=== PATIENT | female | born 1975 | race Caucasian/White ===

== ENCOUNTER 2016-11-24 01:31 | Emergency (ER) | payer OTHER ==
[2016-11-24 01:42] VITALS: TEMP 97.9; BMI 43.4
--- NOTE | 2016-11-24 02:00 | ED PDOC ---
Arrival/HPI - General Chief Complaint: Chest Pain Time Seen by Provider: 11/24/16 01:44 Historian: Patient - History of Present Illness Narrative History of Present Illness (Text): 11/24/16 02:01 A 41 year old female, whose past medical history includes hypertension, presents to the emergency department complaining of left sided chest pain and arm pain for the past 2 days. Patient notes pain is worse with deep breaths. Denies any abdominal pain or any other complaints at this time. Denies smoking. Symptom Onset: Sudden Symptom Course: Unchanged Activities at Onset: Rest Context: Home Past Medical History - Provider Review Nursing Documentation Reviewed: Yes - Infectious Disease Hx of Infectious Diseases: None - Tetanus Immunization Tetanus Immunization: Unknown - Cardiac Hx Cardiac Disorders: Yes Hx Hypertension: Yes - Pulmonary Hx Respiratory Disorders: No - Neurological Hx Neurological Disorder: No - HEENT Hx HEENT Disorder: No - Renal Hx Renal Disorder: No - Endocrine/Metabolic Hx Endocrine Disorders: No - Hematological/Oncological Hx Blood Disorders: No - Integumentary Hx Dermatological Disorder: No - Musculoskeletal/Rheumatological Hx Musculoskeletal Disorders: Yes Hx Back Pain: Yes - Gastrointestinal Hx Gastrointestinal Disorders: No - Genitourinary/Gynecological Hx Genitourinary Disorders: No - Psychiatric Hx Psychophysiologic Disorder: No Hx Substance Use: No - Surgical History Hx Section: Yes (X2) Other/Comment: MARILIN LOVE, - Anesthesia Hx Anesthesia: Yes Hx Anesthesia Reactions: No Hx Malignant Hyperthermia: No - Suicidal Assessment Feels Threatened In Home Enviroment: No Family/Social History - Physician Review Nursing Documentation Reviewed: Yes Family/Social History: No Known Family HX Smoking Status: Never Smoked Hx Alcohol Use: No Hx Substance Use: No Hx Substance Use Treatment: No Allergies/Home Meds Allergies/Adverse Reactions: Allergies seafood Adverse Reaction (Uncoded 11/24/16 01:42) SHORTNESS OF BREATH Home Medications: Home Meds Medication Instructions Recorded Confirmed Metoprolol Succinate [Toprol XL] 50 mg PO DAILY 10/28/15 11/24/16 Review of Systems - Physician Review All systems were reviewed & negative as marked: Yes - Review of Systems Cardiovascular: Chest Pain Gastrointestinal: absent: Abdominal Pain Musculoskeletal: Other (arm pain) Physical Exam Vital Signs Reviewed: Yes Vital Signs Temp Pulse Resp BP Pulse Ox 11/24/16 04:18 62 18 142/86 99 11/24/16 01:41 97.9 F 59 L 19 132/80 100 Temperature: Afebrile Blood Pressure: Normal Pulse: Bradycardic Respiratory Rate: Normal Appearance: Positive for: Well-Appearing, Non-Toxic, Comfortable Pain Distress: None Mental Status: Positive for: Alert and Oriented X 3 - Systems Exam Head: Present: Atraumatic, Normocephalic Pupils: Present: PERRL Extroacular Muscles: Present: EOMI Conjunctiva: Present: Normal Mouth: Present: Moist Mucous Membranes Neck: Present: Normal Range of Motion Respiratory/Chest: Present: Clear to Auscultation, Good Air Exchange, Tender to Palpation (L chest wall). No: Respiratory Distress, Accessory Muscle Use Cardiovascular: Present: Bradycardic. No: Murmurs Abdomen: Present: Normal Bowel Sounds. No: Tenderness, Distention, Peritoneal Signs Back: Present: Normal Inspection Upper Extremity: Present: Normal Inspection. No: Cyanosis, Edema Lower Extremity: Present: Normal Inspection. No: Edema Neurological: Present: GCS=15, CN II-XII Intact, Speech Normal Skin: Present: Warm, Dry, Normal Color. No: Rashes Psychiatric: Present: Alert, Oriented x 3, Normal Insight, Normal Concentration Medical Decision Making ED Course and Treatment: 11/24/16 01:57 Impression: A 41 year old female with left sided chest pain and arm pain. Differential Diagnosis included but are not limited to: costochondritis vs. musculoskeletal chest pain Plan: -- EKG -- labs -- Urinalysis -- Toradol -- Reassess and disposition Prior Visits: Notes and results from previous visits were reviewed. Patient last reported to the emergency department on 04/04/16 for evaluation of left shoulder pain. Progress Notes: 11/24/16 02:30 EKG: Ordered, reviewed, and independently interpreted the EKG. Rate : 53 BPM Rhythm : sinus bradycardia Interpretation : Nonspecific ST segment changes pt feels better after toadol will dc , no cardiac risk factore 11/28/16 20:14 Re-evaluation Time: 04:20 Reassessment Condition: Re-examined, Improved - Lab Interpretations Lab Results: 11/24/16 02:22 11/24/16 02:22 Lab Results 11/24/16 02:22: Sodium 139, Potassium 4.2, Chloride 103, Carbon Dioxide 26, Anion Gap 14, BUN 16, Creatinine 0.6, Est GFR ( Amer) > 60, Est GFR (Non- Af Amer) > 60, Random Glucose 100, Calcium 9.4, Magnesium 1.9, Total Bilirubin 0.4, AST 24, ALT 38, Alkaline Phosphatase 72, Lactate Dehydrogenase 404, Total Creatine Kinase 87, Troponin I < 0.01, Total Protein 7.9, Albumin 4.1, Globulin 3.7, Albumin/Globulin Ratio 1.1 11/24/16 02:22: WBC 6.5, RBC 4.28, Hgb 13.0, Hct 38.4, MCV 89.7, MCH 30.4, MCHC 33.9, RDW 14.1, Plt Count 253, MPV 9.7, Gran % 38.1 L, Lymph % (Auto) 50.4 H, [place] % (Auto) 10.1 H, Eos % (Auto) 1.2 L, Baso % (Auto) 0.2, Gran # 2.46, Lymph # 3.3, [place] # 0.7 H, Eos # 0.1, Baso # 0.01 I have reviewed the lab results: Yes - EKG Interpretation Interpreted by ED Physician: Yes Type: 12 lead EKG - Medication Orders Current Medication Orders: Discontinued Medications Ketorolac Tromethamine (Toradol) 30 mg IVP ONCE ONE Stop: 11/24/16 01:56 DEBRA Risk Score for UA/NSTEMI - DEBRA Risk Score Age > 64: NO 3 or more CAD Risk Factors: NO Known CAD (Stenosis greater than 50%): NO Severe Angina: NO EKG ST changes greater than 0.5mm: NO Positive Cardiac Marker: NO DEBRA Score: 0 % risk at 14 days of: all cause mortality, new or recurrent ND, or severe recurrent ischemia requiring urgen revascularization: 5% - Scribe Statement The provider has reviewed the documentation as recorded by the Emili Leonardo Provider Scribe Attestation: All medical record entries made by the Emili were at my direction and personally dictated by me. I have reviewed the chart and agree that the record accurately reflects my personal performance of the history, physical exam, medical decision making, and the department course for this patient. I have also personally directed, reviewed, and agree with the discharge instructions and disposition. Disposition/Present on Arrival - Present on Arrival Any Indicators Present on Arrival: No History of DVT/PE: No History of Uncontrolled Diabetes: No Urinary Catheter: No History of Decub. Ulcer: No History Surgical Site Infection Following: None - Disposition Have Diagnosis and Disposition been Completed?: Yes Diagnosis: Musculoskeletal chest pain Disposition: HOME/ ROUTINE Disposition Time: 04:20 Condition: GOOD Discharge Instructions (ExitCare): Chest Pain (ED) Print Language: [place] ISLAND[place]
[2016-11-24 02:33] LABS: BASO # 0.01 K/mm3 (0.0-2.0); BASO % 0.2 % (0.0-3.0); EOS # 0.1 (0.0-0.7); EOS % 1.2 % (1.5-5.0); GRAN # 2.46 (1.4-6.5); GRAN % 38.1 % (50.0-68.0); LYMPH # 3.3 (1.2-3.4); LYMPH % 50.4 % (22.0-35.0); MEAN CELL VOLUME 89.7 fL (80.0-105.0); MEAN CORPUSCULAR HEMOGLOBIN 30.4 pg (25.0-35.0); MEAN CORPUSCULAR HGB CONC 33.9 g/dl (31.0-37.0); MEAN PLATELET VOLUME 9.7 fl (7.0-11.0); MONO # 0.7 (0.1-0.6); MONO % 10.1 % (1.0-6.0); PLATELET COUNT 253 10^3/uL (120.0-450.0); RBC 4.28 10^6/uL (3.5-6.1); RED CELL DISTRIBUTION WIDTH 14.1 % (11.5-14.5); WHITE BLOOD COUNT 6.5 10^3/ul (4.5-11.0)
[2016-11-24 02:54] LABS: ALB/GLOB RATIO 1.1 (1.1-1.8); ALBUMIN 4.1 g/dL (3.0-4.8); ALT/SGPT 38 U/L (7-56); AST/SGOT 24 U/L (15-39); BLOOD UREA NITROGEN 16 mg/dL (7-21); CALCIUM 9.4 mg/dL (8.4-10.5); GFR AFRICAN-AMERICAN > 60; GFR NON-AFRICAN AMERICAN > 60; MAGNESIUM 1.9 mg/dL (1.7-2.2)
[2016-11-24 03:06] LABS: TROPONIN I < 0.01 ng/mL
[2016-11-24 04:19] VITALS: BP 142/86; PULSE 62; RESP 18; O2SAT 99
--- NOTE | 2016-11-24 20:15 | CARD ---
APPROVED REPORT EKG Measurement Heart [id number] <Conclusion> Sinus bradycardia Minimal voltage criteria for LVH, may be normal variant Borderline ECG
== END 2016-11-24 04:43 | disposition home or self-care (01) ==
LOC: ED 01:31
DX: R07.89 Other chest pain (principal); I10 Essential (primary) hypertension

== ENCOUNTER 2017-11-13 15:24 | Emergency (ER) | payer OTHER ==
[2017-11-13 15:24] VITALS: BMI 42.0
[2017-11-13 16:34] VITALS: O2SAT 98
[2017-11-13] MEDS ORDERED: Sodium Chloride 0.9% 1,000 ML IV STA (17:41)
--- NOTE | 2017-11-13 17:42 | ED PDOC ---
Arrival/HPI - General Chief Complaint: Back Pain Time Seen by Provider: 11/13/17 16:39 Historian: Patient - History of Present Illness Narrative History of Present Illness (Text): 11/13/17 17:20 Patient was recently placed on ED room. This 42 yo female came c/o RUQ abdominal pain radiating to her right shoulder x 7 days. Patient has worsen last 3 days. Patient denies sob, cp, arredondo, wheezing, palpitation, vomiting, rectal bleeding, recent trauma, dizziness, or abnormal gait. Time/Duration: Other (see hpi) Context: Home Past Medical History - Provider Review Nursing Documentation Reviewed: Yes - Infectious Disease Hx of Infectious Diseases: None - Tetanus Immunization Tetanus Immunization: Unknown - Cardiac Hx Hypertension: Yes - Pulmonary Hx Respiratory Disorders: No - Neurological Hx Neurological Disorder: No - HEENT Hx HEENT Disorder: No - Renal Hx Renal Disorder: No - Endocrine/Metabolic Hx Endocrine Disorders: No - Hematological/Oncological Hx Blood Disorders: No - Integumentary Hx Dermatological Disorder: No - Musculoskeletal/Rheumatological Hx Musculoskeletal Disorders: Yes Hx Back Pain: Yes - Gastrointestinal Hx Gastrointestinal Disorders: No - Genitourinary/Gynecological Hx Genitourinary Disorders: No - Psychiatric Hx Psychophysiologic Disorder: No Hx Substance Use: No - Surgical History Hx Section: Yes (X2) Other/Comment: MARILIN LOVE, - Anesthesia Hx Anesthesia: Yes Hx Anesthesia Reactions: No Hx Malignant Hyperthermia: No - Suicidal Assessment Feels Threatened In Home Enviroment: No Family/Social History - Physician Review Nursing Documentation Reviewed: Yes Family/Social History: Other (noncontributory) Smoking Status: Never Smoked Hx Alcohol Use: No Hx Substance Use: No Hx Substance Use Treatment: No Allergies/Home Meds Allergies/Adverse Reactions: Allergies shellfish derived Allergy (Verified 11/13/17 16:26) ANAPHYLAXIS Home Medications: Home Meds Medication Instructions Recorded Confirmed Metoprolol Succinate XL [Toprol XL] 50 mg PO DAILY 10/28/15 11/13/17 Omeprazole [Omeprazole] 40 mg PO DAILY 06/11/17 11/13/17 traMADol [Ultram] 50 mg PO Q6H PRN 06/11/17 11/13/17 Vit D3-Vit K/Berberine/Hops 1 each PO QWK 11/13/17 11/13/17 [Ostera Tablet] Review of Systems - Review of Systems Constitutional: Normal. absent: Fatigue, Weight Change Eyes: Normal ENT: Normal Respiratory: Normal. absent: SOB, Cough, Sputum, Wheezing Cardiovascular: Normal. absent: Chest Pain, Palpitations Gastrointestinal: Abdominal Pain (Radiates to the back and shoulder), Nausea. absent: Constipation, Vomiting Genitourinary Female: Normal Musculoskeletal: Normal Skin: Normal Neurological: Normal Endocrine: Normal Hemo/Lymphatic: Normal Psychiatric: Normal Physical Exam Vital Signs Temp Pulse Resp BP Pulse Ox 11/13/17 21:42 98.2 F 68 17 148/72 98 11/13/17 16:29 98.5 F 61 18 104/67 98 Temperature: Afebrile Blood Pressure: Normal Pulse: Regular Respiratory Rate: Normal Appearance: Positive for: Well-Appearing, Non-Toxic, Comfortable Pain Distress: None Mental Status: Positive for: Alert and Oriented X 3 - Systems Exam Head: Present: Atraumatic, Normocephalic Pupils: Present: PERRL Extroacular Muscles: Present: EOMI Conjunctiva: Present: Normal Mouth: Present: Moist Mucous Membranes Neck: Present: Normal Range of Motion Respiratory/Chest: Present: Clear to Auscultation, Good Air Exchange. No: Respiratory Distress, Accessory Muscle Use Cardiovascular: Present: Regular Rate and Rhythm, Normal S1, S2. No: Murmurs Abdomen: Present: Normal Bowel Sounds. No: Tenderness, Distention, Peritoneal Signs, Rebound, Guarding, McBurney's Point Tender, Rovsing's Sign Present Back: Present: Normal Inspection Upper Extremity: Present: Normal Inspection, Normal ROM. No: Cyanosis, Edema Lower Extremity: Present: Normal Inspection, NORMAL PULSES, Normal ROM. No: Edema Neurological: Present: GCS=15, CN II-XII Intact, Speech Normal Skin: Present: Warm, Dry, Normal Color. No: Rashes Psychiatric: Present: Alert, Oriented x 3, Normal Insight, Normal Concentration Medical Decision Making ED Course and Treatment: 11/15/17 19:28 Re-evaluation. Patient feels better. Discussed results and plan with patient who expresses understanding. All questions answered and there is agreement with the plan to discharge home with instructions. Patient stable for discharge. Return if symptoms persist or worsen. Patient was recommended to f/u PMD and surgeon for revaluation. To return to emergency if symptoms worsen. Re-evaluation Time: 20:40 Reassessment Condition: Re-examined, Improved - Lab Interpretations Microbiology Results: Microbiology Results 11/13/17 18:28 Urine Urine Culture - Final No Growth (<1,000 CFU/ML) Lab Results: 11/13/17 18:28 11/13/17 18:28 Lab Results 11/13/17 18:28: Urine Color Yellow, Urine Appearance Clear, Urine pH 7.5, Ur Specific [place] 1.015, Urine Protein Negative, Urine Glucose (UA) Negative, Urine Ketones Trace H, Urine Blood Negative, Urine Nitrate Negative, Urine Bilirubin Negative, Urine Urobilinogen 0.2, Ur Leukocyte Esterase Negative, Urine HCG, Qual Negative 11/13/17 18:28: Sodium 143, Potassium 4.5, Chloride 104, Carbon Dioxide 27, Anion Gap 16, BUN 15, Creatinine 0.8, Est GFR ( Amer) > 60, Est GFR (Non- Af Amer) > 60, Random Glucose 89, Calcium 9.2, Magnesium 2.0, Total Bilirubin 0.2, AST 28, ALT 39, Alkaline Phosphatase 68, Total Protein 7.9, Albumin 4.2, Globulin 3.7, Albumin/Globulin Ratio 1.1, Lipase 139 11/13/17 18:28: WBC 7.6, RBC 4.25, Hgb 12.8, Hct 38.3, MCV 90.1, MCH 30.1, MCHC 33.4, RDW 14.5, Plt Count 265, MPV 9.6, Gran % 43.9 L, Lymph % (Auto) 42.1 H, [place] % (Auto) 12.3 H, Eos % (Auto) 1.6, Baso % (Auto) 0.1, Gran # 3.32, Lymph # (Auto) 3.2, [place] # (Auto) 0.9 H, Eos # (Auto) 0.1, Baso # (Auto) 0.01 I have reviewed the lab results: Yes Interpretation: No clinic. lab abnormalty - RAD Interpretation Narrative RAD Interpretations (Text): 11/13/17 20:39 FINDINGS: Lung bases: Unremarkable. No mass. No consolidation. ABDOMEN: Liver: Unremarkable. Gallbladder and bile ducts: Unremarkable. No calcified stones. No ductal dilation. Pancreas: Unremarkable. No ductal dilation. Spleen: Unremarkable. No splenomegaly. Adrenals: Unremarkable. No mass. Kidneys and ureters: Unremarkable. No obstructing stones. No hydronephrosis. Stomach and bowel: Stool is present throughout the colon and rectum, correlate with history of constipation. . No dilated bowel loops. PELVIS: Appendix: No findings to suggest acute appendicitis. Bladder: Partially contracted. Reproductive: Unremarkable as visualized. ABDOMEN and PELVIS: Intraperitoneal space: Unremarkable. No free air. No drainable fluid collection. Bones/joints: No acute fracture. No dislocation. Soft tissues: Small fat-containing subumbilical hernia. Vasculature: Lack of intravenous contrast limits evaluation for pathology. No abdominal aortic aneurysm. Lymph nodes: Unremarkable. No enlarged lymph nodes. IMPRESSION: Lack of intravenous contrast limits evaluation for pathology. No evidence of bilateral nephrolithiasis or hydronephrosis. No imaging features to suggest acute appendicitis at this time. 11/13/17 20:41 FINDINGS: Liver: Hepatic steatosis. No intrahepatic bile duct dilation. Gallbladder: The gallbladder is contracted. Evaluation for cholelithiasis is limited due to contracted status of the gallbladder. Correlate clinically. Common bile duct: Common bile duct measures up to 4.2 mm. No stones. No dilation. Pancreas: Unremarkable as visualized. Right kidney: No hydronephrosis. IMPRESSION: 1. Hepatic steatosis. 2. The gallbladder is contracted. Evaluation for cholelithiasis is limited due to contracted status of the gallbladder. Correlate clinically Radiology Orders: 11/13/17 ABD & PELVIS W/O PO OR IV CONT [CT] Stat 11/13/17 17:38 GALLBLADDER & COMMON DUCT [US] Stat - Medication Orders Current Medication Orders: Discontinued Medications Famotidine (Pepcid) 20 mg IVP STAT STA Stop: 11/13/17 17:40 Last Admin: 11/13/17 18:15 Dose: 20 mg IVP Administration Document 11/13/17 18:15 MS (Rec: 11/13/17 18:15 [place] [facility] [id number] Charges for Administration # of IVP Administrations 1 Sodium Chloride (Sodium Chloride 0.9%) 1,000 mls @ 999 mls/hr IV .Q1H1M STA Stop: 11/13/17 18:41 Last Admin: 11/13/17 18:15 Dose: 999 mls/hr eMAR Start Stop Document 11/13/17 18:15 MS (Rec: 11/13/17 18:15 MS [facility] [id number] Intravenous Solution Start Date 11/13/17 Start Time 18:15 End Date 11/13/17 End time 19:15 Total Infusion Time 60 Ketorolac Tromethamine (Toradol) 30 mg IVP STAT STA Stop: 11/13/17 20:41 Last Admin: 11/13/17 21:10 Dose: 30 mg MAR Pain Assessment Document 11/13/17 21:10 IT (Rec: 11/13/17 21:10 IT [id number]) Pain Reassessment Is this a pain reassessment? No Presence of Pain Presence of Pain Yes IVP Administration Document 11/13/17 21:10 IT (Rec: 11/13/17 21:10 IT [id number]) Charges for Administration # of IVP Administrations 1 Disposition/Present on Arrival - Present on Arrival Any Indicators Present on Arrival: No History of DVT/PE: No History of Uncontrolled Diabetes: No Urinary Catheter: No History of Decub. Ulcer: No History Surgical Site Infection Following: None - Disposition Have Diagnosis and Disposition been Completed?: Yes Diagnosis: Biliary colic symptom Disposition: HOME/ ROUTINE Disposition Time: 20:42 Patient Plan: Discharge Condition: IMPROVED Discharge Instructions (ExitCare): Gallstones (DC) Additional Instructions: Call private doctor and general surgeon for follow up visit and revaluation in 1 -2 days. take medication for pain as needed. return to emergency if pain worsen Prescriptions: Famotidine [Pepcid] 40 mg PO DAILY #10 tablet Ibuprofen [Motrin] 600 mg PO Q8 PRN #20 tab PRN Reason: Pain, Severe (8-10) Referrals: Yan Dewitt MD [Primary Care Provider] - Follow up with primary Millie Gann MD [Staff Provider] - Follow up with primary Forms: [employer] (Macedonian), WORK NOTE
[2017-11-13 18:33] LABS: BASO # 0.01 K/mm3 (0.0-2.0); BASO % 0.1 % (0.0-3.0); EOS # 0.1 (0.0-0.7); EOS % 1.6 % (1.5-5.0); GRAN # 3.32 (1.4-6.5); GRAN % 43.9 % (50.0-68.0); HEMOGLOBIN 12.8 g/dL (12.0-16.0); LYMPH # 3.2 (1.2-3.4); LYMPH % 42.1 % (22.0-35.0); MEAN CELL VOLUME 90.1 fl (80.0-105.0); MEAN CORPUSCULAR HEMOGLOBIN 30.1 pg (25.0-35.0); MEAN CORPUSCULAR HGB CONC 33.4 g/dl (31.0-37.0); MEAN PLATELET VOLUME 9.6 fl (7.0-11.0); MONO # 0.9 (0.1-0.6); MONO % 12.3 % (1.0-6.0); PH,URINE 7.5 (4.7-8.0); RBC 4.25 10^6/uL (3.5-6.1); RED CELL DISTRIBUTION WIDTH 14.5 % (11.5-14.5); URINE BILIRUBIN NEGATIVE (NEGATIVE); URINE BLOOD NEGATIVE (NEGATIVE); URINE GLUCOSE (UA) NEGATIVE (NEGATIVE); URINE LEUKOCYTE ESTERASE NEGATIVE Leu/uL (NEGATIVE); URINE PROTEIN NEGATIVE mg/dL (<30 mg/dL); URINE UROBILINOGEN 0.2 E.U./dL (<1 E.U./dL); WHITE BLOOD COUNT 7.6 10^3/ul (4.5-11.0)
[2017-11-13 18:36] LABS: URINE APPEARANCE CLEAR (CLEAR); URINE COLOR YELLOW (YELLOW)
[2017-11-13 18:38] LABS: HCG,QUALITATIVE URINE NEGATIVE (NEGATIVE)
[2017-11-13 18:48] LABS: ALB/GLOB RATIO 1.1 (1.1-1.8); ALBUMIN 4.2 g/dL (3.0-4.8); ALT/SGPT 39 U/L (7-56); AST/SGOT 28 U/L (14-36); BLOOD UREA NITROGEN 15 mg/dL (7-21); CALCIUM 9.2 mg/dL (8.4-10.5); GFR AFRICAN-AMERICAN > 60; GFR NON-AFRICAN AMERICAN > 60; LIPASE 139 U/L (23-300)
[2017-11-13 21:43] VITALS: BP 148/72; PULSE 68; RESP 17; TEMP 98.2
--- NOTE | 2017-11-14 08:43 | US ---
HISTORY: RUQ abd. pain r/o stones COMPARISON: None. TECHNIQUE: Sonographic evaluation of the right upper quadrant of the abdomen. FINDINGS: LIVER: Measures 14.8 cm in length. Diffusely increased echogenicity of the liver parenchyma. Consistent with fatty infiltration. No mass. Smooth contour. No intrahepatic biliary dilatation. Normal hepatopetal portal venous flow. GALLBLADDER: Unremarkable. No gallstones. COMMON BILE DUCT: Measures 4 mm. No stones. No dilatation. PANCREAS: Unremarkable as visualized. No mass. No ductal dilatation. RIGHT KIDNEY: Measures 10.7 cm in length. Normal echogenicity. No calculus, mass, or hydronephrosis. AORTA: No aneurysmal dilatation. IVC: Unremarkable. OTHER FINDINGS: None . IMPRESSION: Fatty infiltration of the liver. No evidence of cholelithiasis or cholecystitis. Please note that the gallbladder is partially contracted at the time of this examination and evaluation is somewhat limited. Preliminary interpretation of this examination was reported by [facility] at 8:03 p.m. on 11/13/2017. There is concurrence of this report with the preliminary interpretation.
--- NOTE | 2017-11-14 11:02 | CT ---
PROCEDURE: CT Abdomen and Pelvis without intravenous contrast HISTORY: RLQ abdominal pain COMPARISON: None. TECHNIQUE: Without contrast.. Contrast dose: Radiation dose: Total exam DLP = 1184 mGy-cm. This CT exam was performed using one or more of the following dose reduction techniques: Automated exposure control, adjustment of the mA and/or kV according to patient size, and/or use of iterative reconstruction technique. FINDINGS: LOWER THORAX: Unremarkable. LIVER: Unremarkable. No gross lesion or ductal dilatation. GALLBLADDER AND BILE DUCTS: Unremarkable. PANCREAS: Unremarkable. No gross lesion or ductal dilatation. SPLEEN: Unremarkable. ADRENALS: Unremarkable. No mass. KIDNEYS AND URETERS: Unremarkable. No hydronephrosis. No solid mass. VASCULATURE: Unremarkable. No aortic aneurysm. BOWEL: Unremarkable. No obstruction. No gross mural thickening. APPENDIX: Unremarkable. Normal appendix. PERITONEUM: Unremarkable. No free fluid. No free air. LYMPH NODES: Unremarkable. No enlarged lymph nodes. BLADDER: Unremarkable. REPRODUCTIVE: Unremarkable. BONES: No acute fracture. OTHER FINDINGS: None. IMPRESSION: Unremarkable non contrast enhanced CT of the abdomen and pelvis. No evidence of appendicitis or urolithiasis
== END 2017-11-13 21:13 | disposition home or self-care (01) ==
LOC: ED 15:24
DX: K80.50 Calculus of bile duct without cholangitis or cholecystitis without obstruction (principal); I10 Essential (primary) hypertension
CPT/HCPCS: 74176; 76705; 80053; 81003; 83690; 83735; 84703; 85025; 87086; 96361; 96374; 96375; 99282; J1885; J7030